=== PATIENT | female | born 1970 | race American Indian/Alaskan Native ===

== ENCOUNTER 2016-07-28 11:42 | Outpatient (CLI) | payer MEDICARE ==
--- NOTE | 2016-07-28 14:41 | Cat Scan Report ---
CT CHEST, ABDOMEN AND PELVIS WITHOUT CONTRAST INDICATION: Weight loss. COMPARISON: None similar at this institution. FINDINGS: Noncontrast chest, abdomen and pelvis CT performed. Oral contrast given. CHEST: Borderline/mild cardiomegaly. Possible anemia. Post CABG changes. No effusions. Assessment of the great vessels and for detecting subtle lymphadenopathy limited due to lack of IV contrast. No aortic aneurysm however. Pulmonary arterial hypertension suspected. No size significant axillary lymphadenopathy. Normal thyroid. Left lower lung scarring. No focal suspicious masses. Nonspecific distal esophageal wall thickening, not excluded for gastroesophageal reflux and/or hiatal hernia, amongst others. ABDOMEN: Please note that sensitivity to detect small visceral lesions is limited due to the absence of intravenous contrast. Right hepatic lobe approximately 17.5 cm in midclavicular length. Otherwise grossly unremarkable unenhanced liver, spleen, gallbladder, pancreas, adrenals, nonaneurysmal abdominal aorta and IVC. [place] kidneys atrophic bilaterally, though nonhydronephrotic with few renal cortical hypodensities/cysts, the largest approximately 1.9 cm right interpolar, axial image 179, series 2. A normal-appearing right lower quadrant renal transplant also noted with few surgical clips. No ascites or size significant adenopathy. Few small, subcentimeter retroperitoneal/para-aortic lymph nodes. Opacified GI tract nonobstructive. Normal appendix, though slightly medially displaced in the right lower quadrant due to the transplanted kidney. Stool throughout non-opacified colon, greatest along the ascending colon/possible constipation. Supraumbilical midline mesentery as on axial series 2, images [id number] demonstrates approximately 0.8 cm AP x 3.5 cm transverse heterogeneous calcification and approximately 5.3 cm craniocaudal, presumed old postsurgical/posttraumatic with adjacent fat stranding within the abdominal mesentery and also some possibly extending to the anterior abdominal wall suspected with some subcutaneous stranding as well. Few of the right lower quadrant anterior abdominal wall subcutaneous postsurgical changes may also be noted. PELVIS: Minimal free fluid in the deep pelvis not entirely excluded on axial image 262, amongst others. Grossly unremarkable nonopacified urinary bladder, uterus and the rectosigmoid. Few small pelvic phleboliths. No definite size significant significant adenopathy. Bilateral femoral head AVN noted without significant collapse. Post CABG changes. Slight diffuse sclerotic bony appearance may be metabolic/dialysis related. CONCLUSION: No definite acute CT abnormality on this limited, unenhanced exam with various other incidental findings, including pulmonary arterial hypertension, atrophic [place] kidneys with bilateral renal cysts, a right lower quadrant renal transplant, presumed iatrogenic/posttraumatic mid abdominal mesenteric calcification anteriorly, bilateral hip AVN and post CABG changes, amongst others, as detailed above. Please correlate. Thank you for the opportunity to participate in this patient's care.
== END 2016-07-28 11:43 | disposition home or self-care (01) ==
LOC: CT 11:42
PROVIDERS: ATTEND Internal Medicine Gastroenterology
DX: I27.2 Other secondary pulmonary hypertension (principal); N28.1 Cyst of kidney, acquired; K21.9 Gastro-esophageal reflux disease without esophagitis; K44.9 Diaphragmatic hernia without obstruction or gangrene; N26.1 Atrophy of kidney (terminal); I87.8 Other specified disorders of veins; Z95.1 Presence of aortocoronary bypass graft; Z94.0 Kidney transplant status
CPT/HCPCS: 71250; 74176